=== PATIENT | male | born 1975 | race Caucasian/White ===

== ENCOUNTER 2019-07-04 14:36 | Emergency (ER) | payer BC, SELFPAY ==
[2019-07-04 14:43] VITALS: BP 116/78; PULSE 96; RESP 18; TEMP 36.6; O2SAT 99
--- NOTE | 2019-07-04 14:43 | ED.SKABFB ---
HPI - Skin/Abscess/Foreign Bdy General Chief complaint: Skin/Abscess/Foreign Body Stated complaint: rash Time Seen by Provider: 07/04/19 15:15 Source: patient and RN notes reviewed Mode of arrival: ambulatory Limitations: no limitations History of Present Illness HPI narrative: 43 male presents with concern for generalized rash. He reports he was working in the [employer] on Thursday and noticed later that night and the next morning he had a generalized itchy rash. He reports rash to his neck, torso, arms, legs. Reports using poison rasta wash with little relief. Denies taking any antihistamines. Reports similar instance last year after doing the same job in the same was he worked in this year. Reports at that time he took prednisone which resolved the rash. He reports he is currently in the middle of a 30-day course of Levaquin prescribed by his urologist. complaint: rash Related Data Home Medications Medication Instructions Recorded Confirmed Levaquin 07/04/19 07/04/19 mirtazapine 45 mg PO DAILY 07/04/19 07/04/19 Allergies Allergy/AdvReac Type Severity Reaction Status Date / Time Sulfa (Sulfonamide Allergy Unknown Sweating Verified 07/04/19 14:52 Antibiotics) Review of Systems Review of Systems: Narrative: CONSTITUTIONAL: Denies malaise, chills, sweats, or fever. EYES: Denies visual changes, redness, or discharge. ENT: Denies rhinorrhea, congestion, sinus pain, otalgia or sore throat. CARDIOVASCULAR: Denies chest pain, palpitations, or edema. RESPIRATORY: Denies cough or dyspnea. GASTROINTESTINAL: Denies abdominal pain, nausea, vomiting, diarrhea SKIN: Reports red itchy rash on his torso, legs, wrists, neck MUSCULOSKELETAL: Denies myalgia. NEUROLOGIC: Denies headache. All systems reviewed & are unremarkable except as noted in HPI and below PMFSH Family History Family History (Updated 01/20/12 @ 14:29 by DOCTOR UNKNOWN) Other Diabetes mellitus Social History Social History Alcohol intake: never Comments At time of signature, agree with nursing past medical, surgical, social and family history. There is no relevant family history pertinent to the presenting complaint Exam Narrative: Exam Narrative: GENERAL: Well-appearing, well-nourished, and in no acute distress. HEAD: Normocephalic EYES: PERRLA, conjunctivae clear ENT: Mucous membranes moist. Oropharynx without edema, erythema or lesions. NECK: Supple. CHEST: No respiratory distress. Clear to auscultation. No bony deformities, no asymmetry. Speaks in full sentences. HEART: Regular rate and rhythm. SKIN: Warm, dry erythematous maculopapular rash without well-defined borders noted to torso, waistline, inner thighs, neck, and arms. NEURO: Alert and oriented x3. PSYCH: Normal mood and affect Course Course Emergency Course: Discussed treatment options with patient, including prednisone which can increase the risk of side effects with Levaquin including tendon rupture. Through shared decision-making, and consultation with pharmacist, patient will use topical cream and antihistamines and call his urologist regarding possibly changing the Levaquin. Patient was given a written prescription for prednisone to fill if he is able to get his antibiotic changed. Patient verbalizes understanding of risks of prednisone and Levaquin. Patient is aware of diagnosis, understands and agrees to treatment plan. Anticipatory guidance given. Patient agrees to follow-up as directed and is aware of reasons to seek care at the emergency department. Portions of this record may have been created with voice recognition software Vital Signs Vital signs: Vital Signs Temperature 97.8 F 07/04/19 14:43 Pulse Rate 96 07/04/19 14:43 Respiratory Rate 18 07/04/19 14:43 Blood Pressure 116/78 07/04/19 14:43 Pulse Oximetry 99 07/04/19 14:43 Temperature 97.8 F 07/04/19 14:43 Pulse Rate 96 07/04/19 14:43 Respiratory Rate 18 07/04/19 14:43 Blood
== END 2019-07-04 15:30 | disposition home or self-care (01) ==
PROVIDERS: Emergency Provider Nurse Practitioner; PCP Internal Medicine
DX: R21 Rash and other nonspecific skin eruption (principal); K76.0 Fatty (change of) liver, not elsewhere classified
CPT/HCPCS: 99213; G0463

== ENCOUNTER 2022-01-10 09:42 | Emergency (ER) | payer BC, SELFPAY ==
[2022-01-10 09:51] VITALS: BP 125/82; PULSE 83; RESP 16; TEMP 36.8; O2SAT 98
--- NOTE | 2022-01-10 10:16 | ED.GENADULT ---
HPI - General Adult General Chief complaint: Upper Respiratory Infection Stated complaint: sore throat History of Present Illness HPI narrative: Patient is a 46-year-old male who presents to the [facility] via POV for an evaluation of cold symptoms that began 5 days ago. Additionally, he reports sore throat, nasal congestion, dry cough, fever, and myalgias. Maximum temperature was 100.0. He states his myalgias and fever resolved approximately 4 days ago. He denies taking OTC cold meds for symptoms. Ibuprofen improves throat pain. Nothing worsens symptoms. He is fully vaccinated against COVID and influenza. Denies known exposure to sick contacts Related Data Home Medications Medication Instructions Recorded Confirmed mirtazapine 45 mg tablet 45 mg PO DAILY 07/04/19 07/04/19 omeprazole 40 mg capsule,delayed mg 01/10/22 release Allergies Allergy/AdvReac Type Severity Reaction Status Date / Time Sulfa (Sulfonamide Allergy Unknown Sweating Verified 07/04/19 14:52 Antibiotics) Review of Systems Review of Systems: Denies chills, sweats, change in appetite, poor p.o. intake, dizziness, headaches, sinus pain, sinus pressure, rhinorrhea, drooling, difficulty swallowing, ear pain, lymphadenopathy, abdominal pain, nausea, vomiting, shortness of breath, cyanosis, wheezing, chest pain, and heart palpitations PMFSH Past Medical History Medical History (Updated 01/10/22 @ 10:32 by PIEDAD Basurto, ) Anxiety GERD (gastroesophageal reflux disease) Family History Family History Other Diabetes mellitus Social History Social History Alcohol intake: never Comments I have reviewed and agree with the patient's past medical, surgical, social, and family hx as documented by the RN. There is no relevant family history pertinent to the presenting complaint. Exam Narrative: GENERAL: Well-appearing, well-nourished, and in no acute distress. HEAD: Normocephalic, atraumatic. No sinus tenderness or facial swelling appreciated. EYES: PERRLA and EOMI. No evidence of erythema, swelling, or drainage. ENT: Bilateral external ears and ear canals normal. Bilateral TMs are normal.No TM perforation. Nares clear, no rhinorrhea or epistaxis. Bilateral turbinates without erythema/ swelling. Mucous membranes moist and pink. Uvula is midline without erythema and swelling. Bilateral tonsils are moderately erythematous and mildly edematous otherwise posterior pharynx is normal. Breath odor and voice normal. NECK: Supple. No Lymphadenopathy or nuchal rigidity appreciated. CHEST: Bilateral lung helm are clear to auscultation. No respiratory distress. No evidence of pleuritic cp upon examination. Cough appreciated upon examination. HEART: Regular rate and rhythm. No murmur, gallop, or rub heard. EXTREMITIES: Normal range of motion. No edema. SKIN: Warm, dry, no rash. NEURO: No focal deficits. Alert and oriented x3. Course Course Level of Care: Express Care Visit Vital Signs Vital signs: Vital Signs Temperature 98.2 F 01/10/22 09:51 Pulse Rate 83 01/10/22 09:51 Respiratory Rate 16 01/10/22 09:51 Blood Pressure 125/82 01/10/22 09:51 Pulse Oximetry 98 01/10/22 09:51 Oxygen Delivery Room Air 01/10/22 09:51 Temperature 98.2 F 01/10/22 09:51 Pulse Rate 83 01/10/22 09:51 Respiratory Rate 16 01/10/22 09:51 Blood Pressure 125/82 01/10/22 09:51 Pulse Oximetry 98 01/10/22 09:51 Oxygen Delivery Room Air 01/10/22 09:51 Medical Decision Making Differential Diagnosis Differential Diagnosis: Allergic rhinitis, ABRS, acute viral sinusitis, strep pharyngitis, nasopharyngitis, bronchitis, pneumonia, AOM, otitis externa, viral URI, influenza, covid-19 Vital Signs Vital Signs: Vital Signs Temperature 98.2 F 01/10/22 09:51 Pulse Rate 83 01/10/22
== END 2022-01-10 10:37 | disposition home or self-care (01) ==
PROVIDERS: Emergency Provider Nurse Practitioner Family; PCP Internal Medicine
DX: U07.1 COVID-19 (principal); K21.9 Gastro-esophageal reflux disease without esophagitis; F41.9 Anxiety disorder, unspecified
CPT/HCPCS: 87426; 99213; C9803; G0463

== ENCOUNTER 2022-10-25 08:48 | Emergency (ER) | payer BC, SELFPAY ==
[2022-10-25 08:56] VITALS: BP 108/84; PULSE 77; RESP 16; TEMP 36.3; O2SAT 99
--- NOTE | 2022-10-25 08:56 | ED.GENADULT ---
HPI - General Adult General Chief complaint: Dental/Oral Stated complaint: JAW PAIN Time Seen by Provider: 10/25/22 08:56 Source: patient, RN notes reviewed and old records reviewed Mode of arrival: ambulatory Limitations: no limitations History of Present Illness HPI narrative: 47 year old male presents to [facility] care with complaints of pain to his right jaw for the past 2 month. Patient reports that it started after having dental work on his left lower tooth and having to have mouth open for a long period of time. patient reports that pain increases when he opens and closes mouth and also with chewing. Patient does also report history of grinding teeth. Patient reports that he has been taking some Ibuprofen for his discomfort. MD complaint: right jaw pain Onset (ago): month(s) (2) Location: face (right jaw) Severity scale (1-10): 4 Quality: other (pulling, soreness, spasms) Treatments prior to arrival: NSAID Related Data Home Medications Medication Instructions Recorded Confirmed mirtazapine 45 mg tablet 45 mg PO HS 07/04/19 10/25/22 omeprazole 40 mg capsule,delayed 40 mg PO DAILY 01/10/22 10/25/22 release Allergies Allergy/AdvReac Type Severity Reaction Status Date / Time Sulfa (Sulfonamide Allergy Unknown Sweating Verified 10/25/22 08:56 Antibiotics) Review of Systems Review of Systems: CONSTITUTIONAL: Denies fever, chills, or sweats. EYES: Denies visual changes, redness, or discharge. ENT: Denies rhinorrhea, congestion, sore throat, or otalgia, reports pain to his right jaw CARDIOVASCULAR: Denies chest pain, palpitations, or edema. RESPIRATORY: Denies cough or dyspnea. GASTROINTESTINAL: Denies abdominal pain, nausea, vomiting, or diarrhea. GENITOURINARY: Denies dysuria or hematuria. SKIN: Denies rash or itching. MUSCULOSKELETAL: Denies back pain, joint pain, or myalgia. NEUROLOGIC: Denies headache, numbness, or weakness. PSYCHIATRIC: Positive for history of anxiety or depression. All systems reviewed & are unremarkable except as noted in HPI and below PMFSH Past Medical History Medical History Anxiety Barretts esophagus Fatty liver GERD (gastroesophageal reflux disease) Surgical History Surgical History (Updated 10/25/22 @ 09:13 by Shaina Gupta NP) H/O left knee surgery History of eye surgery RK bilateral eyes Family History Family History Other Diabetes mellitus Social History Social History (Updated 10/25/22 @ 15:47 by Shaina Gupta NP) Smoking status: Current every day smoker Tobacco type: e-cigarettes/vaping Alcohol intake: never Substance use type: does not use Gender identity (if verbalized by the patient): Male Comments At time of signature, agree with nursing past medical, surgical, social and family history. There is no relevant family history pertinent to the presenting complaint Exam Narrative: GENERAL: Well-appearing, well-nourished, and in no acute distress. HEAD: Normocephalic, atraumatic. EYES: PERRLA and EOMI. ENT: Nares clear, no rhinorrhea or epistaxis. Mucous membranes moist.TM's normal throat pink with no lesion or noted teeth decay, no lesions noted, pain to right jaw area especially with chewing for 2 month duration NECK: Supple.no lymphadenopathy CHEST: Clear to auscultation. No respiratory distress. no cough noted SAO2 99% on room air HEART: Regular rate and rhythm. No murmur heard. Normal peripheral pulses. ABDOMEN: Soft, nontender, nondistended, normal active bowel sounds. EXTREMITIES: Normal range of motion. No edema. SKIN: Warm, dry, no rash. NEURO: No focal deficits. Alert and oriented x3. Course Course Emergency Course: Patient is aware of diagnosis, understands and agrees to treatment plan.? Anticipatory guidance given.? Patient agrees to follow-up as directed and is aware of reasons to seek care at the [facility]
[2022-10-25 08:58] VITALS: BP 108/84; PULSE 77; RESP 16; TEMP 36.3; O2SAT 99
== END 2022-10-25 09:28 | disposition home or self-care (01) ==
PROVIDERS: Emergency Provider Registered Nurse; PCP Internal Medicine
DX: R68.84 Jaw pain (principal); F17.290 Nicotine dependence, other tobacco product, uncomplicated; K22.70 Barrett's esophagus without dysplasia; K76.0 Fatty (change of) liver, not elsewhere classified; K21.9 Gastro-esophageal reflux disease without esophagitis
CPT/HCPCS: 99213; G0463

== ENCOUNTER 2023-07-18 11:49 | Emergency (ER) | payer BC, SELFPAY ==
[2023-07-18 12:24] VITALS: BP 110/84; PULSE 90; RESP 16; TEMP 36.1; O2SAT 98
--- NOTE | 2023-07-18 12:55 | ED.GENADULT ---
HPI - General Adult General Chief complaint: Upper Respiratory Infection Stated complaint: COLD SYMPTOMS/EYE REDNESS Source: patient, RN notes reviewed and old records reviewed Mode of arrival: ambulatory Limitations: no limitations History of Present Illness HPI narrative: 47-year-old male patient presents to [facility] with complaints cough, congestion this started Thursday. Patient states just started taking [id number] medications yesterday for symptoms but is now having bilateral eye redness, eye irritation, drainage, a crusting. Related Data Home Medications Medication Instructions Recorded Confirmed mirtazapine 45 mg tablet 45 mg PO HS 07/04/19 07/18/23 omeprazole 40 mg capsule,delayed 40 mg PO DAILY 01/10/22 07/18/23 release fluoxetine 20 mg capsule mg 07/18/23 Allergies Allergy/AdvReac Type Severity Reaction Status Date / Time Sulfa (Sulfonamide Allergy Unknown Sweating Verified 07/18/23 12:26 Antibiotics) Review of Systems Constitutional: Constitutional: Reports no additional constitutional complaints, Denies body ache(s), Denies chills, Denies fatigue, Denies fever(s) and Denies headache(s) Eyes: Eyes: Reports no additional eye complaints, Denies blurry vision, Denies exophthalmos, Denies change in vision, Denies diplopia, Reports eye discharge, Reports irritation, Reports itchy eyes and Denies eye pain ENT: Reports system reviewed and no additional complaints, except as documented, Denies vertigo, Denies dizziness, Denies ear discharge, Denies otalgia, Denies facial pain, Denies headache(s), Reports nasal congestion, Reports nasal discharge, Denies sinus pain, Reports sinus pressure and Denies sore throat Cardiovascular: Cardiovascular: Reports no additional cardiovascular complaints, Denies chest pain, Denies chest pain at rest, Denies rapid heart rate and Denies dyspnea Respiratory: Respiratory: Reports no additional respiratory complaints, Denies chest congestion, Reports cough, Denies pain on inspiration, Denies pain with cough and Denies dyspnea Gastrointestinal: Gastrointestinal: Denies abdominal pain, Denies diarrhea, Denies nausea and Denies vomiting Integumentary/Breasts: Skin/Breast: Denies rash Neurologic: Reports system reviewed and no additional complaints, except as documented, Denies vertigo, Denies dizziness and Denies headache(s) Endocrine: Endocrine: Denies fatigue PMF Past Medical History Medical History Anxiety Barretts esophagus Fatty liver GERD (gastroesophageal reflux disease) Surgical History Surgical History H/O left knee surgery History of eye surgery RK bilateral eyes Family History Family History Other Diabetes mellitus Social History Social History Smoking status: Current every day smoker Tobacco type: e-cigarettes/vaping Alcohol intake: never Substance use type: does not use Gender identity (if verbalized by the patient): Male Comments At the time of my signature, I reviewed and agree with the nursing past medical, surgical, social, and family history. There is no relevant family history pertinent to the patient complaint. Exam Const: General: cooperative, healthy appearing, no acute distress and well nourished Nutritional Appearance: well nourished Orientation/consciousness: patient oriented x3 Limitations: no limitations HENMT: Head: normal to inspection and normocephalic Ears: external ears normal, TM's normal bilaterally, EAC's normal and mastoids normal Face/Nose/Sinus: Normal nasal mucous membranes and turbinates present, normal facial exam and sinuses nontender Face and sinus: normal facial exam Mouth: Yes Normal oral and palatal mucosa present, Yes oropharynx normal and Yes moist mucous membranes
== END 2023-07-18 13:05 | disposition home or self-care (01) ==
PROVIDERS: Emergency Provider Registered Nurse; PCP Internal Medicine
DX: B34.9 Viral infection, unspecified (principal); H10.33 Unspecified acute conjunctivitis, bilateral; F17.290 Nicotine dependence, other tobacco product, uncomplicated; K22.70 Barrett's esophagus without dysplasia; K76.0 Fatty (change of) liver, not elsewhere classified; K21.9 Gastro-esophageal reflux disease without esophagitis; F41.9 Anxiety disorder, unspecified
CPT/HCPCS: 99213; G0463

== ENCOUNTER 2023-08-03 16:01 | Emergency (ER) | payer BC, SELFPAY ==
--- NOTE | ~2023-08-03 | XR_ITS ---
Clinical Indication: Flu PA and lateral views of the chest: Comparison: None Findings: The lungs are clear, without evidence of focal consolidation or pleural effusion. Cardiome diastinal silhouette is within normal limits. Bones and soft tissues are unremarkable. Impression: Normal chest. Reviewed, dictated and finalized at location . Impression: Normal chest.
[2023-08-03 16:06] VITALS: BP 100/78; PULSE 78; RESP 16; TEMP 36.8; O2SAT 97
--- NOTE | 2023-08-03 16:20 | ED.URI ---
HPI - URI/Sore Throat General Chief Complaint: Upper Respiratory Infection Stated Complaint: Fever/Chest Congestion/Cough Source: patient, RN notes reviewed and old records reviewed Mode of arrival: ambulatory Limitations: no limitations History of Present Illness HPI Narrative: 47-year-old male to Express Care with complaint nasal congestion chest congestion, productive cough and fever up to 103? for 3 days. Patient states nausea and vomiting x6 yesterday which has resolved. Patient endorses exposure to influenza at work. Patient denies chest pain, shortness of breath. Patient able to tolerate fluids by mouth. Respirations even and nonlabored. No signs of distress. Related Data Home Medications Medication Instructions Recorded Confirmed mirtazapine 45 mg tablet 45 mg PO HS 07/04/19 08/03/23 omeprazole 40 mg capsule,delayed 40 mg PO DAILY 01/10/22 08/03/23 release fluoxetine 20 mg capsule 20 mg PO DAILY 07/18/23 08/03/23 Allergies Allergy/AdvReac Type Severity Reaction Status Date / Time Sulfa (Sulfonamide Allergy Unknown Sweating Verified 08/03/23 16:08 Antibiotics) Review of Systems Review of Systems: All systems reviewed & are unremarkable except as noted in HPI and below Constitutional: Constitutional: Reports as per HPI, Reports fatigue, Reports fever(s) and Denies headache(s) Eyes: Eyes: Reports no additional eye complaints ENT: Reports as per HPI, Reports nasal congestion and Denies sore throat Cardiovascular: Cardiovascular: Reports no additional cardiovascular complaints, Denies chest pain and Denies dyspnea Respiratory: Respiratory: Reports no additional respiratory complaints, Reports cough ( Productive per patient) and Denies dyspnea Gastrointestinal: Gastrointestinal: Reports nausea ( resolved) and Reports vomiting ( resolved) Musculoskeletal: Musculoskeletal: Reports no additional musculoskeletal complaints Neurologic: Reports system reviewed and no additional complaints, except as documented Psychiatric: Psychiatric: Reports no additional psychiatric complaints [facility] Past Medical History Medical History Anxiety Barretts esophagus Fatty liver GERD (gastroesophageal reflux disease) Surgical History Surgical History H/O left knee surgery History of eye surgery RK bilateral eyes Family History Family History Other Diabetes mellitus Social History Social History Smoking status: Current every day smoker Tobacco type: e-cigarettes/vaping Alcohol intake: never Substance use type: does not use Gender identity (if verbalized by the patient): Male Comments At the time of my signature, I reviewed and agree with the nursing past medical, surgical, social, and family history. There is no relevant family history pertinent to the patient complaint. Exam Const: General: cooperative, comfortable, no acute distress, alert, ill appearing, tired appearing and well nourished; No acute distress Nutritional Appearance: well nourished Orientation/consciousness: patient oriented x3 Limitations: no limitations HENMT: Head: normal to inspection Ears: external ears normal Face/Nose/Sinus: Normal external nose present, Normal nares present, Abnormal mucous membranes and turbinates present boggy and erythematous, normal facial exam, No erythema and No edema Face and sinus: normal facial exam, no erythema and no edema Mouth: Yes Normal oral and palatal mucosa present Throat: posterior oropharynx abnormal erythema and postnasal drainage Eyes: General: appearance normal, both eyes and all related structures Neck: Neck: normal visual inspection, full ROM and no meningeal signs Lymphatic: no lymphadenopathy noted and no lymphedema noted C
== END 2023-08-03 17:34 | disposition home or self-care (01) ==
PROVIDERS: Emergency Provider Nurse Practitioner Family; PCP Internal Medicine
DX: J10.1 Influenza due to other identified influenza virus with other respiratory manifestations (principal); J40 Bronchitis, not specified as acute or chronic; F17.290 Nicotine dependence, other tobacco product, uncomplicated; K22.70 Barrett's esophagus without dysplasia; K76.0 Fatty (change of) liver, not elsewhere classified; K21.9 Gastro-esophageal reflux disease without esophagitis; F41.9 Anxiety disorder, unspecified
CPT/HCPCS: 71046; 87804; 99213; G0463

== ENCOUNTER 2023-08-04 12:10 | Emergency (ER) | payer BC, SELFPAY ==
[2023-08-04 12:15] VITALS: BP 124/82; PULSE 80; RESP 18; TEMP 37.1; O2SAT 100
[2023-08-04 12:59] LABS: Influenza A QL RT-PCR Negative (Negative); Influenza B QL RT-PCR Positive (Negative); RSV RNA, RT-PCR Negative (Negative); SARS-CoV-2 RNA PCR Negative (Negative)
--- NOTE | 2023-08-04 14:38 | ED.URI ---
HPI - URI/Sore Throat General Chief Complaint: Upper Respiratory Infection Stated Complaint: INFLUENZA B+ DOESN'T FEEL RIGHT Time Seen by Provider: 08/04/23 12:20 History of Present Illness HPI Narrative: Patient has been having URI symptoms for the last 3-4 days, with the worsening of his heartburn, and nausea, he was diagnosed with flu yesterday at an urgent care and they started him on doxycycline, since he started taking the antibiotic he is feeling worse. He is worried and wanted to get checked out. Related Data Home Medications Medication Instructions Recorded Confirmed mirtazapine 45 mg tablet 45 mg PO HS 07/04/19 08/03/23 omeprazole 40 mg capsule,delayed 40 mg PO DAILY 01/10/22 08/03/23 release fluoxetine 20 mg capsule 20 mg PO DAILY 07/18/23 08/03/23 Allergies Allergy/AdvReac Type Severity Reaction Status Date / Time Sulfa (Sulfonamide Allergy Unknown Sweating Verified 08/03/23 16:08 Antibiotics) Review of Systems Review of Systems: CONST: No fever. HEENT: Congestion C/V: Heartburn RESP: Cough GI: Nausea : No dysuria. M/S: muscle aches. SKIN: No rash. NEURO: [No headache or focal numbness or weakness] PSYCH: [No depression] [facility] Past Medical History Medical History Anxiety Barretts esophagus Fatty liver GERD (gastroesophageal reflux disease) Surgical History Surgical History H/O left knee surgery History of eye surgery RK bilateral eyes Family History Family History Other Diabetes mellitus Social History Social History Smoking status: Current every day smoker Tobacco type: e-cigarettes/vaping Alcohol intake: never Substance use type: does not use Gender identity (if verbalized by the patient): Male Exam Narrative: EXAMINATION OF ORGAN SYSTEMS/BODY AREAS: Constitutional: Vital signs per nursing GENERAL:[No acute distress, non-toxic appearing.] HEAD: Normal with no signs of head trauma. EYES: EOMI, conjunctiva normal ENT: Hearing grossly intact LUNGS: Nonlabored breathing. CTAB HEART: [Regular rate and rhythm] ABD: [Soft], [nontender to palpation] EXT: Normal range of motion SKIN: [No rashes or lesions.] NEURO: [Alert and oriented x 3. No gross focal sensory or strength deficits.] PSYCH: Slightly anxious affect Course Vital Signs Vital signs: Vital Signs Temperature 98.8 F 08/04/23 12:15 Pulse Rate 80 08/04/23 12:15 Respiratory Rate 18 08/04/23 12:15 Blood Pressure 124/82 08/04/23 12:15 Pulse Oximetry 100 08/04/23 12:15 Temperature 98.8 F 08/04/23 12:15 Pulse Rate 80 08/04/23 12:15 Respiratory Rate 18 08/04/23 12:15 Blood Pressure 124/82 08/04/23 12:15 Pulse Oximetry 100 08/04/23 12:15 Oxygen Delivery Room Air 08/04/23 13:02 MDM - URI/Sore Throat MDM Narrative Medical decision making narrative: Patient presenting with recent diagnosis of flu, confirmed here, with normal chest x-ray here from this morning which I did review. He has normal vital signs, he is clear to auscultation bilaterally, in nursery distress. Since he has no wheezing have low concern for bronchitis and I would at this point do not feel he would benefit from the doxycycline especially since he is having GI upset from this, I have counseled him to stop the doxycycline for the flu and I have given him various medications to help with symptoms including Flonase, famotidine, Zofran. I have let him know he should follow up with primary care doctor and I do he is stable for discharge at this time. Lab Data Labs: Lab Results 08/04/23 Range/Units 12:17 Influenza A (RT-PCR) Negative (Negative) Influenza B (RT-PCR) Positive A (Negative) RSV (RT-PCR) Negative (Negativ
== END 2023-08-04 13:05 | disposition home or self-care (01) ==
PROVIDERS: Family Medicine; Emergency Provider Emergency Medicine; PCP Internal Medicine
DX: J10.1 Influenza due to other identified influenza virus with other respiratory manifestations (principal); Z20.822 Contact with and (suspected) exposure to COVID-19
CPT/HCPCS: 87637; 99283